=== PATIENT | female | born 1985 | race Caucasian/White ===

== ENCOUNTER 2018-02-01 18:56 | Emergency (ER) | payer OTHER ==
[~2018-02-01] VITALS: Ht 172.7 cm; Wt 139.7 kg
[~2018-02-01 18:56] MED LIST: ALPRAZOLAM; FLAGYL500 MG PO; FLONASE 0.05%50 MCG NS; HYDROCODON-ACE1 EAC7; IBUPROFEN 800800 M1; NAPROSYN500 MG PO; NEURONTIN600 MG; ORTHO TRI-CYCL1 EACH PO; OXYBUTYNIN; PENICILLIN V P500 MG PO; PENICILLIN VK500 M1 PO; PHENERGAN 25 MG25 M1 PO; SOMA250 MG PO; VICODIN; XANAX XR0.5 MG PO
[2018-02-01] MEDS ORDERED: PREDNISONE50 MG PO (20:03)
[2018-02-01 20:25] VITALS: BP 131/86
== END 2018-02-01 20:25 | disposition home or self-care (01) ==
LOC: M.ERS 18:56
DX: J45.21 Mild intermittent asthma with (acute) exacerbation (principal); J30.81 Allergic rhinitis due to animal (cat) (dog) hair and dander; F41.9 Anxiety disorder, unspecified; F43.10 Post-traumatic stress disorder, unspecified; F17.210 Nicotine dependence, cigarettes, uncomplicated; F10.99 Alcohol use, unspecified with unspecified alcohol-induced disorder; Z90.49 Acquired absence of other specified parts of digestive tract; Z88.8 Allergy status to other drugs, medicaments and biological substances

== ENCOUNTER 2018-03-04 22:54 | Emergency (ER) | payer OTHER ==
[~2018-03-04] VITALS: Ht 172.7 cm; Wt 140.6 kg
[~2018-03-04 22:54] MED LIST changes: +PREDNISONE50 MG PO
[2018-03-04] MEDS ORDERED: PROMETHAZINE HC25 M1 PO (23:21)
[2018-03-04] MEDS ORDERED: BENTYL 20 MG TA20 M1 PO (23:21)
[2018-03-04 23:32] VITALS: BP 134/82
== END 2018-03-04 23:33 | disposition home or self-care (01) ==
LOC: M.ERS 22:54
DX: T62.8X1A Toxic effect of other specified noxious substances eaten as food, accidental (unintentional), initial encounter (principal); J45.909 Unspecified asthma, uncomplicated; F41.9 Anxiety disorder, unspecified; F43.10 Post-traumatic stress disorder, unspecified; M79.7 Fibromyalgia; Z90.49 Acquired absence of other specified parts of digestive tract; Z88.8 Allergy status to other drugs, medicaments and biological substances; F17.210 Nicotine dependence, cigarettes, uncomplicated; Y92.89 Other specified places as the place of occurrence of the external cause

== ENCOUNTER 2018-06-24 00:07 | Emergency (ER) | payer OTHER ==
[~2018-06-24] VITALS: Ht 172.7 cm; Wt 145.2 kg
[~2018-06-24 00:07] MED LIST changes: +BENTYL 20 MG TA20 M1 PO; +PROMETHAZINE HC25 M1 PO
[2018-06-24] MEDS ORDERED: NORCO 5-325 TA1 EACH PO (01:09)
[2018-06-24 01:25] VITALS: BP 126/72
== END 2018-06-24 01:25 | disposition home or self-care (01) ==
LOC: M.ERS 00:07
DX: S90.31XA Contusion of right foot, initial encounter (principal); S90.02XA Contusion of left ankle, initial encounter; S90.01XA Contusion of right ankle, initial encounter; J45.909 Unspecified asthma, uncomplicated; F41.9 Anxiety disorder, unspecified; M79.7 Fibromyalgia; F17.210 Nicotine dependence, cigarettes, uncomplicated; Z90.49 Acquired absence of other specified parts of digestive tract; Z88.8 Allergy status to other drugs, medicaments and biological substances; W18.39XA Other fall on same level, initial encounter; Y93.89 Activity, other specified; Y92.89 Other specified places as the place of occurrence of the external cause; Y99.8 Other external cause status

== ENCOUNTER 2018-10-14 21:10 | Emergency (ER) | payer OTHER ==
[~2018-10-14] VITALS: Ht 172.7 cm; Wt 133.8 kg
[~2018-10-14 21:10] MED LIST changes: +NORCO 5-325 TA1 EACH PO
[2018-10-14] MEDS ORDERED: ADIPEX-P37.5 MG PO (21:21)
[2018-10-14] MEDS ORDERED: DETROL LA4 MG PO (21:22)
[2018-10-14 21:45] LABS: ABSOLUTE BASOPHILS 0.1 thou/uL (0.0-0.2); ABSOLUTE EOSINOPHILS 0.2 thou/uL (0.0-0.7); ABSOLUTE NEUTROPHILS 6.6 thou/uL (1.6-8.1); BASOPHILS 0.7 %; EOSINOPHILS 1.7 %; HEMATOCRIT 37.5 % (37.0-47.0); HEMOGLOBIN 12.6 gm/dL (12.0-15.0); LYMPHOCYTES 33.5 %; MCH 29.6 pg (26.0-34.0); MCHC 33.7 g/dL (28.0-37.0); MONOCYTES 8.3 %; MPV 6.5 fl. (7.2-11.1); NUCLEATED RBCS 0 /100WBC; PLATELET COUNT* 374 thou/uL (150-400); POLYS 55.8 %; RBC 4.25 mil/uL (4.20-5.00); WBC 11.9 thou/uL (4.0-11.0)
[2018-10-14 22:00] LABS: ALBUMIN 3.3 g/dL (3.4-5.0); CALCIUM 8.3 mg/dL (8.5-10.1); CREATININE 0.9 mg/dL (0.6-1.3); POTASSIUM 3.7 mmol/L (3.5-5.1); TOTAL BILIRUBIN 0.4 mg/dL (<0.1-1.0); TOTAL PROTEIN 6.1 g/dL (6.4-8.2)
[2018-10-14 22:24] LABS: URINE BILIRUBIN NEGATIVE (Negative); URINE BLOOD NEGATIVE (Negative); URINE CLARITY CLEAR; URINE COLOR YELLOW; URINE GLUCOSE-RANDOM NEGATIVE (Negative); URINE KETONES NEGATIVE (Negative); URINE LEUKOCYTES-REFLEX NEGATIVE (Negative); URINE NITRITE-REFLEX NEGATIVE (Negative); URINE PROTEIN NEGATIVE (Negative); URINE UROBILINOGEN 0.2 E.U./dl (0.2-1.0)
[2018-10-14 22:41] VITALS: BP 126/97
--- NOTE | 2018-10-15 17:26 | EKG ---
[place] [address] ELECTROCARDIOGRAM REPORT Name: ADRIANOCHYNATOSHA Nichols Room: [facility]#: [id number] Admission: 10/14/18 Attend Phys: Discharge: 10/14/18 Date of : 87 Report #: [id number] THIS REPORT FOR: //name// [facility] ED Test Date: 2018-10-14 Test Time: 21:15:44 Pat Name: CHYNA OH Department: Room: Gender: F Life Skills Worker: Magdalena ELIZONDO : 1985 Requested By: Kia Shaw Order Number: [id number] MD: Hector Gross Measurements Intervals [place] Rate: 91 P: 43 AL: 132 QRS: 35 QRSD: 93 T: 30 QT: 361 QTc: 445 Interpretive Statements Sinus rhythm Baseline wander in lead(s) V2 Compared to ECG 05/14/2017 00:49:45 No significant changes Electronically Signed On 10-15-2018 17:26:20 WEATHER FORCASTER by Hector Gross [email or web address] <ELECTRONICALLY SIGNED> By: Hector Gross MD, [facility] 10/15/18 1726 14 Hector Gross MD, FACC /EPI
== END 2018-10-14 22:42 | disposition home or self-care (01) ==
LOC: M.ERS 21:10
PROVIDERS: Nurse Practitioner
DX: R10.9 Unspecified abdominal pain (principal); F17.210 Nicotine dependence, cigarettes, uncomplicated; J45.909 Unspecified asthma, uncomplicated; F41.9 Anxiety disorder, unspecified; M79.7 Fibromyalgia; Z88.8 Allergy status to other drugs, medicaments and biological substances; Z90.49 Acquired absence of other specified parts of digestive tract

== ENCOUNTER 2019-01-27 22:45 | Emergency (ER) | payer OTHER ==
[~2019-01-27] VITALS: Ht 172.7 cm; Wt 137.9 kg
[~2019-01-27 22:45] MED LIST changes: +ADIPEX-P37.5 MG PO; +DETROL LA4 MG PO
[2019-01-27] MEDS ORDERED: OXYCONTIN10 M1 PO (23:07)
[2019-01-27] MEDS ORDERED: NEURONTIN600 MG PO (23:07)
[2019-01-28 01:21] VITALS: BP 120/78
== END 2019-01-28 01:22 | disposition home or self-care (01) ==
LOC: M.ERS 22:45
DX: S06.0X0A Concussion without loss of consciousness, initial encounter (principal); S16.1XXA Strain of muscle, fascia and tendon at neck level, initial encounter; J45.909 Unspecified asthma, uncomplicated; F41.9 Anxiety disorder, unspecified; M79.7 Fibromyalgia; F17.210 Nicotine dependence, cigarettes, uncomplicated; Z88.8 Allergy status to other drugs, medicaments and biological substances; Z90.49 Acquired absence of other specified parts of digestive tract; V49.49XA Driver injured in collision with other motor vehicles in traffic accident, initial encounter; Y93.89 Activity, other specified; Y92.89 Other specified places as the place of occurrence of the external cause; Y99.8 Other external cause status

== ENCOUNTER 2019-04-18 00:40 | Emergency (ER) | payer OTHER ==
[~2019-04-18] VITALS: Ht 167.6 cm; Wt 127.5 kg
[~2019-04-18 00:40] MED LIST changes: +NEURONTIN600 MG PO; +OXYCONTIN10 M1 PO
[2019-04-18 01:19] LABS: URINE BILIRUBIN NEGATIVE (Negative); URINE BLOOD 1+ (Negative); URINE CLARITY CLEAR; URINE COLOR YELLOW; URINE GLUCOSE-RANDOM NEGATIVE (Negative); URINE KETONES NEGATIVE (Negative); URINE LEUKOCYTES-REFLEX NEGATIVE (Negative); URINE NITRITE-REFLEX NEGATIVE (Negative); URINE PROTEIN NEGATIVE (Negative); URINE UROBILINOGEN 0.2 E.U./dl (0.2-1.0)
[2019-04-18 01:27] LABS: AMP/METHAMP POSITIVE (Negative); BARBITURATES Negative (Negative); BENZODIAZEPINES POSITIVE (Negative); COCAINE Negative (Negative); METHADONE Negative (Negative); OPIATES POSITIVE (Negative); PCP Negative (Negative); THC Negative (Negative)
[2019-04-18 01:43] LABS: BACTERIA-REFLEX >30 Many /HPF (None Seen); CRYSTALS None Seen /LPF (None Seen); FINE GRANULAR CASTS 0-3 Few /LPF (None Seen); HYALINE CASTS 0-3 Few /LPF (None Seen); MUCUS 4-6 Moderate strn/LPF (None Seen); SQUAMOUS 4-10 Moderate /LPF (0-3); URINE RBC 3-10 Few /HPF (0-2); URINE WBC-REFLEX None Seen /HPF (0-5)
[2019-04-18 02:35] VITALS: BP 133/85
== END 2019-04-18 02:36 | disposition home or self-care (01) ==
LOC: M.ERS 00:40
PROVIDERS: Emergency Medicine
DX: M25.551 Pain in right hip (principal); F17.210 Nicotine dependence, cigarettes, uncomplicated; J45.909 Unspecified asthma, uncomplicated; Z90.49 Acquired absence of other specified parts of digestive tract; F41.9 Anxiety disorder, unspecified; M79.7 Fibromyalgia; Z88.8 Allergy status to other drugs, medicaments and biological substances

== ENCOUNTER 2019-05-12 23:09 | Emergency (ER) | payer OTHER ==
[~2019-05-12] VITALS: Ht 167.6 cm; Wt 124.7 kg
[2019-05-12] MEDS ORDERED: OXYCODONE HCL10 MG PO (23:22)
[2019-05-12] MEDS ORDERED: VENTOLIN HFA 1818 GM INH (23:23)
[2019-05-12] MEDS ORDERED: ADDERALL 20 MG20 M1 PO (23:24)
[2019-05-13 01:53] VITALS: BP 130/68
== END 2019-05-13 01:53 | disposition home or self-care (01) ==
LOC: M.ERS 23:09
DX: L02.31 Cutaneous abscess of buttock (principal); F17.210 Nicotine dependence, cigarettes, uncomplicated; J45.909 Unspecified asthma, uncomplicated; F41.9 Anxiety disorder, unspecified; M79.7 Fibromyalgia; Z90.49 Acquired absence of other specified parts of digestive tract; Z88.8 Allergy status to other drugs, medicaments and biological substances